=== PATIENT | female | born 1995 | race Caucasian/White ===

== ENCOUNTER 2018-06-17 14:48 | Emergency (ER) | payer BC ==
[2018-06-17 16:26] VITALS: BP 109/69
--- NOTE | 2018-06-17 16:37 | ED ---
Psychiatric Complaint - HPI Summary HPI Summary: Patient is a 23-year-old college student presented to the ED with 4 days feeling of panic attacks and since of impending doom. She is unsure why she is feeling this way, has never been diagnosed with anxiety or depression in the past and has never had these episodes. She denies any chest pain or palpitations. Denies any headache. She does have a history of sleep disorder and is gone through approximately 48 hours without sleeping in the past, however has never felt anxiety towards this. Over the past 4 days she has been unable to sleep, stating she is feeling fearful and having impending doom, however she is unsure why. Denies any suicidal ideations or homicidal ideations. She denies any self-harm. She does have good relationships around her and continues to go to school, up until 2 days ago where she has been unable to go to school for fear of leaving her house. She states she was able to leave her house intermittently, more specifically to speak with a counselor at [facility] and was able to go to class this morning. She denies any recent illness and denies any other physical symptoms otherwise. - History Of Current Complaint Chief Complaint: EDGeneral Time Seen by Provider: 06/17/18 15:00 Hx Obtained From: Patient ?: No Onset/Duration: Sudden Onset Timing: Constant Severity Initially: Severe Severity Currently: Severe Character: Fearful, Anxious Aggravating Factor(s): Nothing Alleviating Factor(s): Nothing Associated Signs And Symptoms: Positive: Negative Has Homicidal: Reports: Thoughts - Allergies/Home Medications Allergies/Adverse Reactions: Allergies Allergy/AdvReac Type Severity Reaction Status Date / Time No Known Allergies Allergy Verified 06/17/18 14:55 PMH/Surg Hx/FS Hx/Imm Hx Previously Healthy: Yes - Immunization History Hx Pertussis Vaccination: No Immunizations Up to Date: Yes Infectious Disease History: No Infectious Disease History: Denies: Traveled Outside the [place] in Last 30 Days - Social History Occupation: Unemployed, Student Lives: Alone Alcohol Use: Rare Hx Substance Use: No Substance Use Type: Reports: None Hx Tobacco Use: No Smoking Status (MU): Never Smoked Tobacco Review of Systems Constitutional: Negative Negative: Fever, Chills, Fatigue, Skin Diaphoresis Negative: Palpitations, Chest Pain Negative: Shortness Of Breath, Cough Genitourinary: Negative Positive: no symptoms reported, see HPI Negative: Arthralgia, Myalgia Skin: Negative Negative: Headache, Weakness, Paresthesia Positive: Anxious All Other Systems Reviewed And Are Negative: Yes Physical Exam Triage Information Reviewed: Yes Vital Signs On Initial Exam: Initial Vitals Temp Pulse Resp BP Pulse Ox 97.8 F 89 18 113/58 99 06/17/18 14:52 06/17/18 14:52 06/17/18 14:52 06/17/18 14:52 06/17/18 14:52 Vital Signs Reviewed: Yes Appearance: Positive: Well-Appearing, Well-Nourished Skin: Positive: Warm, Skin Color Reflects Adequate Perfusion Head/Face: Positive: Normal Head/Face Inspection Eyes: Positive: EOMI, JUVE, Conjunctiva Clear Neck: Positive: Supple, No Lymphadenopathy Respiratory/Lung Sounds: Positive: Clear to Auscultation, Breath Sounds Present Cardiovascular: Positive: RRR, Pulses are Symmetrical in both Upper and Lower Extremities Abdomen Description: Positive: Nontender, Soft Musculoskeletal: Positive: Normal, Strength/ROM Intact Neurological: Positive: Sensory/Motor Intact, Alert, Oriented to Person Place, Time, Speech Normal Psychiatric: Positive: Anxious AVPU Assessment: Alert Diagnostics - Vital Signs Vital Signs Temp Pulse Resp BP Pulse Ox 06/17/18 14:52 97.8 F 89 18 113/58 99 - Laboratory Lab Statement: Any lab studies that have been ordered have been reviewed, and results considered in the medical decision making process. Course/Dx - Course Course Of Treatment: During the course of treatment, the patient is evaluated for panic attacks versus anxiety versus generalized anxiety disorder versus palpitations. Spoke with patient for approximately 30 minutes regarding her current symptomology. She appears very concerned over her feelings. I've advised she continue to see a counselor, have physical exercise, however I have also agrees to provide her with breakthrough anxiolytics until he is more stable and permanent solution can be agreed upon. She understands to return if she is having any suicidal or homicidal ideations. - Differential Dx/Clinical Impression Differential Diagnosis/HQI/PQRI: Positive: Anxiety Provider Diagnosis: Anxiety Discharge - Sign-Out/Discharge Documenting (check all that apply): Patient Departure - Discharge Plan Condition: Stable Disposition: HOME Prescriptions: LORazepam TAB(*) [Ativan 0.5 MG TAB (*)] 0.5 mg PO Q4H PRN #30 tab MDD 6 PRN Reason: Anxiety Patient Education Materials: Anxiety (ED) Referrals: No Primary Care Phys,NOPCP [Primary Care Provider] - Additional Instructions: Take 0.5 mg up to every 4 hours for anxiety, for worsening anxiety you may take a full 1.0 mg (2 tabs) every 6 hours If 1 mg Ativan is not helping her symptoms, he may take and second 1 mg Ativan approximate 2 hours later Do not exceed a total of 3 mg Ativan daily taking just prior to bed may help with sleep disturbances Please follow-up with your scheduled appointment with her counselor Continue to do physical activities like running or going to the gym which will help fatigue your body and mind Coloring are drawing often helps patients with anxiety symptoms Meditation and breathing exercises may also help - Billing Disposition and Condition Condition: STABLE Disposition: Home
== END 2018-06-17 16:26 | disposition home or self-care (01) ==
LOC: ED 14:48
DX: F41.9 Anxiety disorder, unspecified (principal)
CPT/HCPCS: 99281

== ENCOUNTER 2018-07-13 21:42 | Emergency (ER) | payer BC ==
[2018-07-14] MEDS ORDERED: ALPRAZolam TAB* 0.5 MG PO ONE (00:09)
--- NOTE | 2018-07-14 00:28 | ED ---
HPI Chest Pain - HPI Summary HPI Summary: This patient is a 23 year old F presenting to [facility] c/o intermittent palpitations and CP for the last month. She has been seen in the ED and [facility] for this and dx with anxiety. The patient rates the pain 0/10 in severity. She states she experiences many sx such as numbness in extremities but that they all come back to CP. She states that she gets episodes about every 5 minutes and describes the sensation as her heart hurting. She states that the day it began was a day her apartment was sprayed for bugs and she is concerned this is contributing to the pain. She has not been taking her Xanax. - History of Current Complaint Chief Complaint: EDGeneral Time Seen by Provider: 07/13/18 23:45 Hx Obtained From: Patient Onset/Duration: Started Weeks Ago - 4, Still Present Timing: Constant Initial Severity: Mild Current Severity: None Pain Intensity: 0 Pain Scale Used: 0-10 Numeric Chest Pain Location: Diffuse Chest Pain Radiates: No Associated Signs and Symptoms: Positive: Palpitations Related History: Similar Episode/Dx as: - anxiety - Allergy/Home Medications Allergies/Adverse Reactions: Allergies Allergy/AdvReac Type Severity Reaction Status Date / Time No Known Allergies Allergy Verified 07/13/18 23:46 PMH/Surg Hx/FS Hx/Imm Hx Cardiovascular History: Denies: Hx Angina, Hx Atrial Fibrillation, Hx Congenital Heart Disease, Hx Deep Vein Thrombosis, Hx Peripheral Vascular Disease Opthamlomology History: Denies: Hx Macular Degeneration Neurological History: Denies: Hx Developmental Delay - Immunization History Date of Tetanus Vaccine: utd Date of Influenza Vaccine: fall 2017 Infectious Disease History: No Infectious Disease History: Denies: Traveled Outside the [place] in Last 30 Days - Family History Known Family History: Negative: Respiratory Disease, Seizure Disorder - Social History Occupation: Student Alcohol Use: Rare Hx Substance Use: No Substance Use Type: Reports: None Hx Tobacco Use: No Smoking Status (MU): Never Smoked Tobacco Review of Systems Positive: Chest Pain Positive: Paresthesia All Other Systems Reviewed And Are Negative: Yes Physical Exam - Summary Physical Exam Summary: VITAL SIGNS: Reviewed. GENERAL: Patient is a well-developed and nourished female who is lying comfortable in the stretcher. Patient is not in any acute respiratory distress. HEAD AND FACE: No signs of trauma. No ecchymosis, hematomas or skull depressions. No sinus tenderness. EYES: PERRLA, EOMI x 2, No injected conjunctiva, no nystagmus. EARS: Hearing grossly intact. Ear canals and tympanic membranes are within normal limits. MOUTH: Oropharynx within normal limits. NECK: Supple, trachea is midline, no adenopathy, no JVD, no carotid bruit, no c- spine tenderness, neck with full ROM. CHEST: Symmetric, no tenderness at palpation LUNGS: Clear to auscultation bilaterally. No wheezing or crackles. CVS: Regular rate and rhythm, S1 and S2 present, no murmurs or gallops appreciated. ABDOMEN: Soft, non-tender. No signs of distention. No rebound no guarding, and no masses palpated. Bowel sounds are normal. EXTREMITIES: FROM in all major joints, no edema, no cyanosis or clubbing. NEURO: Alert and oriented x 3. No acute neurological deficits. Speech is normal and follows commands. SKIN: Dry and warm Triage Information Reviewed: Yes Vital Signs On Initial Exam: Initial Vitals Temp Pulse Resp BP Pulse Ox 97.2 F 100 20 118/67 98 07/13/18 21:45 07/13/18 21:45 07/13/18 21:45 07/13/18 21:45 07/13/18 21:45 Vital Signs Reviewed: Yes Diagnostics - Vital Signs Vital Signs Temp Pulse Resp BP Pulse Ox 07/13/18 21:45 97.2 F 100 20 118/67 98 - Laboratory Result Diagrams: 07/14/18 00:25 07/14/18 00:25 Lab Statement: Any lab studies that have been ordered have been reviewed, and results considered in the medical decision making process. - EKG 0026 Cardiac Rate: Bradycardia EKG Rhythm: Sinus Bradycardia - at 50 BPM Summary of EKG Findings: Normal axis. Normal interval. No ischemic changes Chest Pain Course/Dx - Course Assessment/Plan: This patient is a 23 year old F presenting to [facility] c/o intermittent palpitations and CP for the last month. She has been seen in the ED and [facility] for this and dx with anxiety. The patient rates the pain 0 /10 in severity. She states she experiences many sx such as numbness in extremities but that they all come back to CP. She states that she gets episodes about every 5 minutes and describes the sensation as her heart hurting. She states that the day it began was a day her apartment was sprayed for bugs and she is concerned this is contributing to the pain. She has not been taking her Xanax. An EKG reveals Normal axis. Normal interval. No ischemic changes. Blood work obtained. Patient will be discharged and follow up from cardiology. The patient is agreeable with this plan. - Diagnoses Provider Diagnoses: Palpitations Discharge - Sign-Out/Discharge Documenting (check all that apply): Patient Departure - Discharge Plan Condition: Stable Disposition: HOME Patient Education Materials: Heart Palpitations (ED) Referrals: Emile Flanagan DO [Medical Doctor] - 2 Days Additional Instructions: RETURN TO THE EMERGENCY DEPARTMENT FOR CHANGING OR WORSENING SYMPTOMS - Billing Disposition and Condition Condition: STABLE Disposition: Home - Attestation Statements Document Initiated by Je: Yes Documenting Scribe: Taiwo Caro Provider For Whom Je is Documenting (Include Credential): Loly Ziegler MD Scribe Attestation: Taiwo Covington , scribed for Loly Ziegler MD on 07/14/18 at 0640. Scribe Documentation Reviewed: Yes Provider Attestation: The documentation as recorded by the Taiwo corrigan accurately reflects the service I personally performed and the decisions made by Iesha hall MD Status of Scribe Document: Viewed
[2018-07-14 00:31] LABS: ABS Basophils 0.1 10^3/ul (0-0.2); ABS Eosinophils 0.1 10^3/ul (0-0.6); ABS Lymphocytes 2.3 10^3/ul (1.0-4.8); ABS Monocytes 0.3 10^3/ul (0-0.8); ABS Neutrophils 4.5 10^3/ul (1.5-7.7); ABS Nucleated RBC 0 10^3/ul; Eosinophil % 0.8 %; Hematocrit 38 % (35-47); Hemoglobin 12.9 g/dl (12.0-16.0); Lymphocyte % 31.9 %; Mean Corpuscular HGB Conc 34 g/dl (31-36); Mean Corpuscular Hemoglobin 32 pg (27-31); Mean Corpuscular Volume 93 fL (80-97); Mean Platelet Volume 8.4 fL (7.4-10.4); Nucleated Red Blood Cells % 0.1; Platelet Count 153 10^3/ul (150-450); Red Blood Count 4.06 10^6/ul (4.00-5.40); Red Cell Distribution Width 13 % (10.5-15); White Blood Count 7.3 10^3/ul (3.5-10.8)
[2018-07-14 00:52] LABS: EGFR Non-African American 89.7 (>60)
[2018-07-14 01:34] VITALS: BP 114/63
== END 2018-07-14 01:32 | disposition home or self-care (01) ==
LOC: ED 21:42
DX: R00.2 Palpitations (principal); F41.9 Anxiety disorder, unspecified; R07.9 Chest pain, unspecified; R20.0 Anesthesia of skin
CPT/HCPCS: 36415; 80053; 83735; 84443; 84484; 84702; 85025; 93005; 99282; A9270-GY